=== PATIENT | female | born 2000 | race Two or more races ===

== ENCOUNTER 2021-08-23 02:03 | Emergency (ER) | payer SELFPAY ==
[~2021-08-23] VITALS: Ht 170.2 cm; Wt 54.4 kg
--- NOTE | 2021-08-23 02:14 | NUR ---
BIBRA 88 FOR C/O "UTI SYMPTOMS" LOWER BACK PAIN AND DYSURIA. APPEARS VERY ANXIOUS ON TRIAGE. TACHYPNIC ON R/A. SATTING AT 98%. PT A/OX4. CONNECTED PT TO POX AND MONITOR. SAFETY MEASURES IN PLACE.
--- NOTE | 2021-08-23 02:30 | NUR ---
URINE COLLECTED AND SENT TO LAB
--- NOTE | 2021-08-23 02:33 | NUR ---
EMT AT PT'S BEDSIDE FOR EKG
--- NOTE | 2021-08-23 02:34 | NUR ---
WATCH PARTS GRINDER AT PT'S BEDSIDE
[2021-08-23 02:48] LABS: BILIRUBIN,URINE NEGATIVE (NEGATIVE); COLOR,URINE YELLOW (YELLOW); LEUKOCYTE ESTERASE ,URINE NEGATIVE (NEGATIVE); NITRITE, URINE NEGATIVE (NEGATIVE); PH,URINE 7.5 (5.0-8.0); PROTEIN,URINE NEGATIVE (NEGATIVE); UGLUCOSE NEGATIVE (NEGATIVE); UROBILINOGEN,URINE 0.2 EU/dL (0.2)
[2021-08-23 02:48] LABS: BASOPHILS % (AUTO) 0.4 % (0.0-2.0); HEMATOCRIT 39 % (33-45); HEMOGLOBIN 13.7 g/dL (11.5-14.8); LYMPHOCYTES # (AUTO) 2.6 K/uL (0.8-4.8); LYMPHOCYTES % (AUTO) 39.1 % (20.0-44.0); MEAN CORPUSCULAR HGB CONC 35 g/dl (31.0-36.0); MEAN CORPUSCULAR VOLUME 95 fL (82-100); MONOCYTES # (AUTO) 0.5 K/uL (0.1-1.30); NEUTROPHILS # (AUTO) 3.5 K/uL (1.8-8.9); NEUTROPHILS % (AUTO) 51.5 % (43.0-81.0); PLATELET COUNT (AUTO) 160 K/uL (150-450); RED BLOOD CELL COUNT(AUTO) 4.13 MIL/uL (4.0-5.2); WHITE BLOOD COUNT (AUTO) 6.7 K/uL (4.3-11.0)
[2021-08-23 02:55] LABS: CALCIUM, SERUM 8.9 mg/dL (8.5-10.1); CREATININE 0.8 mg/dL (0.6-1.3); POTASSIUM 3.7 mmol/L (3.5-5.1)
[2021-08-23 03:30] VITALS: BP 114/81
--- NOTE | 2021-08-23 03:30 | NUR ---
Patient discharged to home in stable condition. Written and verbal after care instructions given. Patient verbalizes understanding of instruction. PT ambulatory with a steady gait
== END 2021-08-23 03:31 | disposition home or self-care (01) ==
LOC: ER 02:03
DX: R00.2 Palpitations (principal); F32.A Depression, unspecified; F41.9 Anxiety disorder, unspecified
CPT/HCPCS: 36415; 80048-TC; 85025-TC